=== PATIENT | female | born 1955 | race Caucasian/White ===

== ENCOUNTER 2017-05-31 06:35 | Emergency (ER) | payer BC ==
[2017-05-31 06:41] VITALS: BP 117/82; PULSE 80; RESP 16; TEMP 97.9; O2SAT 96
--- NOTE | 2017-05-31 06:58 | EDPHY ---
H & P Stated Complaint: RLQ possibly hernia-pain started with heavy coughing Time Seen by Provider: 05/31/17 06:45 - Personal History Current Tetanus Diphtheria and Acellular Pertussis (TDAP): Unsure - Medical/Surgical History Hx Asthma: No Hx Chronic Respiratory Disease: No Hx Diabetes: No Hx Cardiac Disease: No Hx Renal Disease: No Hx Cirrhosis: No Hx Alcoholism: No Hx HIV/AIDS: No Hx Splenectomy or Spleen Trauma: No Other PMH: 3 vaginal deliveries - Social History Smoking Status: Never smoked Constitutional: Initial Vital Signs Temperature (C) 36.6 C 05/31/17 06:36 Heart Rate 80 05/31/17 06:36 Respiratory Rate 16 05/31/17 06:36 Blood Pressure 117/82 H 05/31/17 06:36 O2 Sat (%) 96 05/31/17 06:36 O2 Delivery Mode Room Air Allergies/Adverse Reactions: Penicillins Allergy (Verified 05/31/17 06:47) Home Medications: Medication Instructions Recorded NK [No Known Home Meds] 05/31/17 Medical Decision Making ED Course/Re-evaluation: CHIEF COMPLAINT: abdominal pain after coughing HISTORY OF PRESENT ILLNESS: The patient is a 61 y/o female arriving with her complaining of right lower quadrant pain after a coughing episode two nights ago. She's been dealing with an upper respiratory infection and coughing for several days. Two nights ago she had a violent coughing episode and developed sudden sharp pain in her RLQ. Pain is only present when coughing or using her abdominal muscles to sit up. She was able to work out yesterday without issue. She denies any associated symptoms. She was able to work out yesterday without issue. No history of abdominal surgeries. REVIEW OF SYSTEMS: A 10 point review of systems was performed and is negative with the exception of the elements mentioned in the history of present illness. PHYSICAL EXAM: HR, BP, O2 Sat, RR. Temp noted General Appearance: Alert, well hydrated, appropriate, and non-toxic appearing. Head: Atraumatic without scalp tenderness or obvious injury Eyes: Pupils equal, round, reactive to light and accommodation, EOMI, no trauma , no injection. Nose: Atraumatic, no rhinorrhea, clear. Throat: Mucus membranes moist. Neck: Supple, non-tender, no lymphadenopathy. Respiratory: No retractions, no distress, no wheezes, and no accessory muscle use. Cardiovascular: Good capillary refill all extremities. Gastrointestinal: Abdomen is soft, non-tender, non-distended, no masses, no rebound, no guarding, no peritoneal signs. Musculoskeletal: Normal active ROM of all extremities, atraumatic. Neurological: Alert, appropriate, and interactive. The patient has non-focal cranial nerves, motor, sensory, and cerebellar exam. Skin: No rashes, good turgor, no nodules on palpation. PAST MEDICAL HISTORY: Denies PAST SURGICAL HISTORY: No abdominal surgeries SOCIAL HISTORY: at bedside. DIAGNOSTICS/PROCEDURES/CRITICAL CARE TIME: Abdominal US: Study: Ultrasound of the: abdomen Indication: right lower quadrant pain after via coughing rule out hernia Results: US scan of the abdomen was obtained. The results of the study are normal. The study was read by the radiologist, Dr. Bertrand Tinajero. I viewed the images myself on the PACS system. DIFFERENTIAL DIAGNOSIS: The differential diagnosis for the patient's abdominal pain included but was not limited to abdominal strain, hernia, ovarian cyst, pelvic inflammatory disease, ovarian torsion, urinary tract infection, ectopic , cholecystitis, and appendicitis. MEDICAL DECISION MAKING: This is a healthy 61 y/o female presenting with a 36 hour history of intermittent right lower quadrant pain following a violent coughing episode. Her pain is only present when using her abdominal muscles, which likely indicates a muscle strain, or less likely, a hernia. Her abdomen is benign to palpation. Plan for abdominal US to rule out hernia. Abdominal ultrasound remark. This patient has an abdominal muscle strain for violent coughing. She will use ibuprofen father primary care doctor Departure - Departure Disposition: Home, Routine, Self-Care Clinical Impression: Abdominal muscle strain Qualifiers: Encounter type: initial encounter Qualified Code(s): S39.011A - Strain of muscle, fascia and tendon of abdomen, initial encounter Condition: Good Instructions: Muscle Strain (ED), Acute Abdominal Pain (ED) Additional Instructions: 1. Take 600mg ibuprofen every 6-8 hours as needed for pain over the next few days. 2. Follow up with your primary care provider for unimproved symptoms over the next week. 3. Return to the ED for severe pain, fever, uncontrollable vomiting, inability to have a bowel movement, or other worsening of condition. Referrals: Marleny Islas MD [[facility] Primary Care Provider] - As per Instructions Report Scribed for: Shabbir Sun Report Scribed by: Nieves Gonsales Date of Report: 05/31/17 Time of Report: 06:58
== END 2017-05-31 08:45 | disposition home or self-care (01) ==
DX: S39.011A Strain of muscle, fascia and tendon of abdomen, initial encounter (principal); X58.XXXA Exposure to other specified factors, initial encounter